=== PATIENT | female | born 1995 | race Caucasian/White ===

== ENCOUNTER → 2019-09-22 15:32 | Outpatient (CLI) | payer OTHER, SELFPAY ==
[2019-09-23 07:26] LABS: COVID19 Sendout Not Detected (Not Detect)
== END ==
PROVIDERS: PCP Family Medicine; Visit Provider Physician Assistant
DX: Z11.59 Encounter for screening for other viral diseases (principal)
CPT/HCPCS: 87635

== ENCOUNTER 2019-09-25 11:02 | Day surgery (SDC) | payer OTHER, SELFPAY ==
[2019-09-25] VITALS (9 sets, daily range): BP systolic 87–119; BP diastolic 46–81; PULSE 74–99; RESP 14–20; TEMP 36.3–36.6; O2SAT 94–100; BMI 20.7
--- NOTE | 2019-09-25 13:46 | PM.PREOP ---
Pre-operative Note COVID-19 COVID-19 status: Negative Interval Note History & Physical reviewed/Exam performed by Physician: Yes Changes to H&P: No
[2019-09-25] MEDS: LACTATED RINGERS 1,000 ML 42 ML IV (15:02)
[2019-09-25] MEDS: ACETAMINOPHEN 325 MG TABLET 975 MG PO (15:04)
--- NOTE | 2019-09-25 16:04 | PM.PREOP ---
Pre-operative Note COVID-19 COVID-19 status: Negative Interval Note History & Physical reviewed/Exam performed by Physician: Yes Changes to H&P: No
--- NOTE | 2019-09-25 16:04 | PM.OP.1 ---
Operative Date/Time/Diagnoses Date of procedure: 09/25/19 Time of procedure: 17:05 Pre-op diagnosis: Chronic tonsillitis with tonsilliths, halitosis, throat pain Post-op diagnosis: same Procedure & Clinicians Procedure: Tonsillectomy Same procedure as scheduled: Yes Indications: 23-year-old female with the above diagnoses incompletely managed with medical therapy, presents for the above procedure. Following discussion of the material risks benefits complications and alternatives, she elected to proceed. Surgeon: Pastor Rowe Click Yes if Unassisted: Yes Anesthesia Type: General and Local Operative Notes Findings: Intact palate single uvula 2 to 3+ tonsils with tonsilliths, no significant adenoid tissue Closure Type: not applicable Specimen(s): none sent Blood products transfused: none Procedure in detail: Following identification and confirmation of consent the patient was brought to the operating room suite and placed in the supine position. General endotracheal anesthesia was administered. A head wrap, shoulder roll, and mouth gag were placed and a red rubber catheter was inserted through the nostril and out the mouth to retract the soft palate. There was no significant adenoid tissue. The left tonsil was retracted medially and suction electrocautery on a setting of 30 was used to dissect the tonsil in a subcapsular plane, followed by hemostasis with the same. This process was repeated on the right side with identical findings. The tonsillar fossae were superficially infiltrated bilaterally with a 1:1 mixture of 1% lidocaine 1 100,000 epinephrine and 0.25% Marcaine 1 to 136187 epinephrine. Mouth gag and rubber catheter were removed and the patient was extubated in the operating room and taken to the recovery room in stable condition without known complication. Complications: none Post-operative Condition: stable Disposition: same day surgery Plan for aftercare: [place] home, follow-up in 3-4 weeks if desired.
--- NOTE | 2019-09-25 16:32 | SUR.OPER ---
Supine on padded OR bed, head on pillow, arm padded and tucked at side, legs uncrossed, safety belt at thigh, tape over blanket over lower legs .
[2019-09-25] MEDS: BUPIVACAINE 0.25% W/ EPI 30 ML VIAL INJ (16:35)
[2019-09-25] MEDS: LIDOCAINE 1% W/EPI 20 ML INJ (16:35)
[2019-09-25] MEDS: BENZOCAINE/MENTHOL 1 LOZ PKT 1 EACH PO (17:33)
[2019-09-25] MEDS: OXYCODONE IR 5 MG TABLET PO (17:37)
--- NOTE | 2019-09-25 18:06 | SUR.PHASEII ---
pt and family given detailed instructions. pt states she feels like going home.
== END 2019-09-25 18:17 | disposition home or self-care (01) ==
PROVIDERS: PCP Family Medicine; Referring Provider Otolaryngology; Visit Provider Otolaryngology
PROC: (CPT 42826; principal; 2019-09-25 12:15)
DX: J35.01 Chronic tonsillitis (principal); R19.6 Halitosis; J35.8 Other chronic diseases of tonsils and adenoids
CPT/HCPCS: 42826; J1100; J2250; J2405; J3010